=== PATIENT | male | born 1980 | race Caucasian/White ===

== ENCOUNTER 2017-02-22 13:31 | Emergency (ER) | payer OTHER | END 2017-02-22 16:22 | disposition home or self-care (01) | LOC: ER1 13:31 | DX: S46.812A Strain of other muscles, fascia and tendons at shoulder and upper arm level, left arm, initial encounter (principal); I10 Essential (primary) hypertension; F17.210 Nicotine dependence, cigarettes, uncomplicated; Z88.5 Allergy status to narcotic agent; X50.9XXA Other and unspecified overexertion or strenuous movements or postures, initial encounter; Y92.009 Unspecified place in unspecified non-institutional (private) residence as the place of occurrence of the external cause | CPT/HCPCS: 72040; 73030; 96372; 99283; J1885 ==